=== PATIENT | male | born 1990 | race Caucasian/White ===

== ENCOUNTER 2018-04-16 17:06 | Emergency (ER) | END 2018-04-16 19:11 | disposition home or self-care (01) ==

== ENCOUNTER 2018-04-18 22:30 | Emergency (ER) | END 2018-04-19 01:54 | disposition home or self-care (01) ==

== ENCOUNTER 2019-05-27 16:37 | Emergency (ER) | payer MEDICAID, OTHER ==
[~2019-05-27] VITALS: Ht 190.5 cm; Wt 70.0 kg
[~2019-05-27 16:37] MED LIST: CEPH-443 PO; NAPR-985 PO; SALI414L TOP; SULF1TAB31 PO
[2019-05-27 16:42] VITALS: BP 140/80; PULSE 80; RESP 18; Ht 190.5 cm; Wt 70.0 kg
--- NOTE | 2019-05-27 18:53 | ERD ---
ER Documentation Chief Complaint Chief Complaint WINSTON FOOT/SOLE PAIN X 1 YEAR HPI 28-year-old male presenting with pain to bilateral feet x1 year. Patient states that he dislocated his pinky toe on the right foot approximately 10 years ago and he has persistent worsening pain at the affected site. He denies any num bness or tingling. Patient also has a site on the bottom of his left foot that appears to be callus and causes pain with ambulation. He denies any falls or injuries. Denies other medical problems. NKDA. Surgical history denies. Social history denies ROS All systems reviewed and are negative except as per history of present illness. Medications Home Meds Active Scripts Salicylic Acid (Salicylic Acid) 414 Ml Lotion, 1 APPLIC TOP DAILY for 84 Days, # 1 BOTTLE Apply to affected area Prov:BENNIE FRANCISCO PA-C 05/27/19 Naproxen* (Naprosyn*) 500 Mg Tablet, 500 MG PO BID PRN for PAIN AND/OR INFLAMMATION, #30 TAB Prov:MANDY LIMA PA-C 04/19/18 Sulfamethoxazole/Trimethoprim* (Bactrim Ds* Tablet) 1 Each Tablet, 1 TAB PO BID, #14 TAB Prov:BENNIE FRANCISCO PA-C 04/16/18 Cephalexin* (Keflex*) 500 Mg Capsule, 500 MG PO QID for 7 Days, CAP Prov:BENNIE FRANCISCO PA-C 04/16/18 Allergies Allergies: Coded Allergies: No Known Allergy (Unverified , 05/27/19) PMhx/Soc Medical and Surgical Hx: pt denies Medical Hx, pt denies Surgical Hx Hx Alcohol Use: No Hx Substance Use: Yes (Marijuana) Hx Tobacco Use: No FmHx Family History: No diabetes, No coronary disease, No other Physical Exam Vitals Vital Signs Date Temp Pulse Resp B/P (MAP) Pulse Ox O2 O2 Flow FiO2 Time Delivery Rate 05/27/19 97.5 80 18 140/80 99 16:42 (100) Physical Exam GENERAL: The patient is well-appearing, well-nourished, in no acute distress CHEST: Clear to auscultation bilaterally. There are no rales, wheezes or rhonchi. HEART: Regular rate and rhythm. No murmurs, clicks, rubs or gallops. EXTREMITIES: Deformity noted to the left foot and right foot. Severe deformity noted of the right pinky toe. NEUROLOGIC: Alert and oriented. Cranial nerves II through XII intact. Motor strength in all 4 extremities with 5 out of 5 strength. Sensation grossly intact. SKIN: Callus lesion noted on the plantar portion of the left foot with no foreign body noted. Procedures/MDM DIAGNOSTIC IMAGING REPORT Patient: TEMO BROYD : 1990 Age: 28 Sex: M MR #: [id number] DOS: 05/27/19 1713 Ordering MD: MARTHA FRANCISCO PA-C Location: [facility] Room/Bed: PROCEDURE: XR Foot. CLINICAL INDICATION: Right foot pain TECHNIQUE: 3 views of the right foot are available for review. COMPARISON: None available FINDINGS: There is severe subluxation/dislocation at the fifth metatarsophalangeal joint. This appears to be dorsal and medial. There is no definite acute fracture though the fifth digit is not well profiled. The remaining joint spaces are preserved. Soft tissues are grossly unremarkable. IMPRESSION: 1. Fifth metatarsophalangeal joint severe subluxation/dislocation, not well profiled. 2. No definite acute fracture though the fifth digit in particular is not well assessed due to overlap. 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 Patient is recommended follow-up with commutator assembler as this is chronic and patient needs to have specialist review symptoms. I have low suspicion for infectious process. I have low suspicion for neuro deficit at this time. Patient is discharged recommend to follow-up with podiatry. Patient is told symptoms change or worsen to return immediately to the ER. All questions answered at discharge Departure Diagnosis: Primary Impression: Plantar wart Additional Impression: Foot pain Condition: Stable Patient Instructions: Plantar Warts Referrals: LIZZY DAMICO DPM, MANSOUR DPM ROGERS, LEE C. DPM Additional Instructions: FOLLOW UP WITH YOUR PRIMARY CARE PHYSICIAN TOMORROW.Return to this facility if you are not improving as expected. BENNIE FRANCISCO PA-C May 27, 2019 18:53
== END 2019-05-27 18:10 | disposition home or self-care (01) ==
LOC: FTE 17:28
DX: B07.0 Plantar wart (principal)
CPT/HCPCS: 73630; Z7502